=== PATIENT | female | born 1935 | race Caucasian/White ===

== ENCOUNTER 2020-07-23 14:33 | Inpatient (IN) | payer MEDICARE ==
[~2020-07-23] VITALS: Ht 160 cm; Wt 46.3 kg
--- NOTE | 2020-07-23 14:51 | NUR ---
MD@[email or web address], medical screening exam in progress
[2020-07-23] MEDS ORDERED: ASPI81TA31 PO (14:55)
[2020-07-23] MEDS ORDERED: MORP30TA59 PO (14:55)
[2020-07-23] MEDS ORDERED: CHOL12502 PO (14:55)
[2020-07-23] MEDS ORDERED: DESV50TA PO (14:55)
[2020-07-23] MEDS ORDERED: MIRT-121 PO (14:55)
[2020-07-23] MEDS ORDERED: MORP15TA PO (14:55)
[2020-07-23] MEDS ORDERED: AMLO-212 PO (14:55)
[2020-07-23] MEDS ORDERED: LORA-258 PO (14:55)
--- NOTE | 2020-07-23 15:00 | NUR ---
Called [facility] for bed assignment and they stated they do not have any female beds available. Nursing office notified and to call back with further information.
--- NOTE | 2020-07-23 15:18 | NUR ---
Patient is medically cleared by Dr Douglass for admission to geriatric mental health unit but no MHU beds available@this time.
--- NOTE | 2020-07-23 17:36 | NUR ---
Lights dimmed. inshore undersea warfare officer [email or web address]. 1:1 sitter observation maintained.
--- NOTE | 2020-07-23 18:39 | NUR ---
Patient's dinner@bedside.
--- NOTE | 2020-07-23 19:21 | NUR ---
Patient is eating dinner with good appetite. She is still waiting for an available MHU nurse & bed, endorsed to charge hand Adrian accordingly.
[2020-07-23] MEDS ORDERED: BLOOD SUGAR DIAGNOSTIC 1 EACH STRIP VI ONE (22:45)
[2020-07-23] MEDS ORDERED: MAG HYDROX/AL HYDROX/SIMETH 30 ML LIQUID UDC PO PRN (22:45)
[2020-07-23] MEDS ORDERED: MAGNESIUM HYDROXIDE 30 ML LIQUID UDC PO PRN (22:45)
[2020-07-23 22:49] VITALS: BP 147/78
--- NOTE | 2020-07-23 23:00 | NUR ---
GPS: Admitted to unit earlier an 84 yr.old female under the care and supervision of /DEBORAH Gross in stable condition. Pt.is on a 72 hour hold for DTS. Pt.expressed suicidal thoughts with intermittent intent occurring randomly with no clear warning or trigger and pt.admits she's not safe to go home,per hold. Upon interview,pt strongly denies having SI and clearly states that she's not suicidal nor have any plans to hurt herself. Pt.is AO x3 although forgetful at times. Anxious but cooperative during admission process. Body check done. Personal belongings list completed. Pt's advisement and pt's rights handbook given. Unit rules explained. Oriented to surroundings. Denies pain at this time. Fall precautions observed.
[2020-07-24 07:30] VITALS: BP 133/69
[2020-07-24] MEDS: LORAZEPAM 1 MG TABLET PO PRN ×3 (07:50→23:59)
[2020-07-24] MEDS: ACETAMINOPHEN 325 MG TABLET PO PRN ×2 (07:50→21:53)
--- NOTE | 2020-07-24 07:50 | NUR ---
UP AMBULATROEY WITH THE FRONT WHEEL WALKER INSISTING ON GETTING HER MORPHINE HER MEDICATIONS HAS NOT BEEN RECONCILED AND MD HAS BEEN NOTIFIED PATIENT GETTING ANXIOUS AND INSISTING ON SOME MEDS SO PATIENT WAS MEDICATED WITH ATIVAN AND TYLENOL AT THIS TIME MEANWHILE AWAITING FOR MD TO RECONCILE HOME MEDS.WILL CONTINUE TO OBSERVE AND PROVIDE COMFORT.
--- NOTE | 2020-07-24 09:31 | NUR ---
Firearms Report: Permit Review Assistant completed and submitted a DOJ firearms report for 5150 danger to self certifications. A copy of report has been placed in patient chart.
--- NOTE | 2020-07-24 11:03 | NUR ---
SUHAIL Initial Discharge Plan: Patient lives at home [address] [place] [address] with caregiver Stephanie Sandra ([phone]). Patient's daughter, Terese Dee ([phone]) is involved in her care. Patient would like to return home. Patient may require a SNF upon discharge. SUHAIL will continue to work with patient, family, and MD to ensure a safe and proper discharge plan.
--- NOTE | 2020-07-24 11:15 | NUR ---
CALLED AND NOTIFIED DR ABRAM MOSS RE PATIENT NEEDED HER HOME MEDICATIONS RECONCILED STATED OKAY
--- NOTE | 2020-07-24 11:16 | NUR ---
SW Caregiver Contact: SW spoke with patient's career transition specialist Stephanie Sandra ([phone]) who is the patient's 24/hr caregiver at home. Stephanie stated that she lives with the patient and helps take care of her.
--- NOTE | 2020-07-24 11:26 | NUR ---
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
--- NOTE | 2020-07-24 12:02 | NUR ---
SUHAIL Family Contact: SUHAIL spoke with patient's daughter, Terese ([phone]) and discussed treatment and discharge plan. SUHIAL educated Terese on the 5150 and 8070 hold criteria. Terese wanted to discuss patient's morphine use and needs with the doctor and nurse. SUHAIL transferred her call to charge nurse.
[2020-07-24] MEDS: MORPHINE SULFATE SR 15 MG TABLET.SA PO SCH ×2 (13:14→22:41)
[2020-07-24] MEDS ORDERED: MORP15TA PO (13:25)
--- NOTE | 2020-07-24 15:35 | NUR ---
DR FERNANDEZ HERE TO SEE AND EXAMINE PATIENT WITH NEW ORDERS AND NOTED.
--- NOTE | 2020-07-24 16:04 | NUR ---
CONSCENT FOR REMERON SIGNED BY THE PATIENT AND FAXED TO THE PHARMACY.
[2020-07-24 16:31] VITALS: BP 145/89
[2020-07-24 17:23] LABS: *BILIRUBIN,URIN NEGATIVE (NEGATIVE); *CLARITY,URINE CLEAR (CLEAR); *COLOR,URINE LIGHT YELLOW (YELLOW); *KETONES,URINE NEGATIVE (NEGATIVE); *UROBILINOGEN,URINE 0.2 E.U./dl (NORMAL); LEUKOCYTE ESTERASE ,URINE NEGATIVE (NEGATIVE); NITRITE, URINE NEGATIVE (NEGATIVE); UGLUCOSE NEGATIVE (NEGATIVE)
[2020-07-24 17:25] LABS: *BLOOD, URINE TRACE (NEGATIVE)
--- NOTE | 2020-07-24 18:00 | NUR ---
RESTING MORE ENGAGING SEEMS MORE ALERT WAS ABLE TO PRODUCE A URINE SPECIMEN ORDERED COMPLIANT AND COOPERATIVE DENIES SI OR HI WILL CONTINUE TO OBSERVE AND PROVIDE SAFE AND THERAPEUTIC ENVIRONMENT AT ALL TIMES.
[2020-07-24 20:11] VITALS: BP 142/71
[2020-07-24] MEDS: MIRTAZAPINE 15 MG TABLET PO SCH (20:42)
[2020-07-24] MEDS: TEMAZEPAM 7.5 MG CAPSULE PO PRN (21:10)
[2020-07-24 22:52] LABS: BACTERIA,URINE NONE SEEN /HPF (NONE SEEN); RBC,URINE 0-3 /HPF (0-3); SQUAMOUS EPITHELIAL CELL,UR FEW /HPF (NONE SEEN); WBC,URINE 0-3 /HPF (0-3)
[2020-07-25] MEDS: MORPHINE SULFATE SR 15 MG TABLET.SA PO SCH ×3 (01:05→20:48)
[2020-07-25 07:11] LABS: BASOPHILS # (AUTO) 0.1 K/uL (0.0-8.0); BASOPHILS % (AUTO) 0.7 % (0.0-2.0); EOSINOPHILS # (AUTO) 0.1 K/uL (0.0-0.7); EOSINOPHILS % (AUTO) 1.8 % (0.0-7.0); HEMATOCRIT 32.7 % (31.2-41.9); HEMOGLOBIN 11.5 g/dL (10.9-14.3); LYMPHOCYTES # (AUTO) 1.2 K/uL (20.0-40.0); LYMPHOCYTES % (AUTO) 17.3 % (20.5-51.5); MEAN CORPUSCULAR HEMOGLOBIN 29.9 uug (24.7-32.8); MEAN CORPUSCULAR HGB CONC 35 g/dL (32.3-35.6); MEAN CORPUSCULAR VOLUME 85.1 fL (75.5-95.3); MONOCYTES # (AUTO) 0.6 K/uL (2.0-10.0); MONOCYTES % (AUTO) 8.6 % (0.0-11.0); NEUTROPHILS % (AUTO) 71.6 % (38.5-71.5); PLATELET COUNT (AUTO) 271 K/uL (179-408); RED BLOOD CELL COUNT(AUTO) 3.84 MIL/uL (3.63-4.92)
[2020-07-25] MEDS: LORAZEPAM 1 MG TABLET PO PRN ×2 (07:17→13:58)
[2020-07-25 07:29] LABS: BILIRUBIN,TOTAL 0.3 mg/dL (0.2-1.0); CREATININE 0.9 mg/dL (0.6-1.3); MAGNESIUM 2.1 mg/dL (1.8-2.4); POTASSIUM 3.8 mmol/L (3.5-5.1); TOTAL PROTEIN, SERUM 7.3 g/dL (6.4-8.2)
[2020-07-25 07:30] VITALS: BP 146/84
[2020-07-25] MEDS: ASPIRIN 81 MG TAB.CHEW PO SCH (08:08)
[2020-07-25] MEDS: AMLODIPINE 5 MG TABLET PO SCH (08:09)
--- NOTE | 2020-07-25 09:26 | NUR ---
SUHAIL Family Contact: SUHAIL spoke with patient's daughter, Terese ([phone]) and and re-discussed treatment plan. SUHAIL Terese wanted education on medications and suicidal ideation. SUHAIL educated Terese on the severity of suicidal ideation with intermittent intent. Terese was more understanding with her mom's presenting situation and concerns. SUHAIL discussed discharge planning and stated that we must be certain the patient is stable before discharging her home.
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
[2020-07-25] MEDS ORDERED: LORAZEPAM 2 MG/1 ML VIAL IM ONE (14:45)
[2020-07-25] MEDS ORDERED: HALOPERIDOL LACTATE 5 MG/1 ML VIAL IM ONE (14:45)
--- NOTE | 2020-07-25 15:00 | NUR ---
Received a phone call from patient daughter, patient daughter states that the patients needed pain medication and was not seen by a medical doctor and psychiatrist, explained patients daughter that patient was seen by Psychiatrist and MD, and pain medication was already given and the patient been , long conversation and trying to explain about the patients behavior and how the family can help with the behavioral improvement of the patient was encourage, SW and Psychiatrist Made aware
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
[2020-07-25 16:18] VITALS: BP 111/55
[2020-07-25 20:20] VITALS: BP 143/69
[2020-07-25] MEDS: MIRTAZAPINE 15 MG TABLET PO SCH (20:48)
--- NOTE | 2020-07-26 05:59 | NUR ---
GPS: Remain calm and cooperative with meds and care. ambulate with fww. slept 8 hrs through the night. no behavior issue noted. assisted with adl's. bed alarm on resting in bed comfortably.
[2020-07-26 07:30] VITALS: BP 133/71
[2020-07-26] MEDS: ASPIRIN 81 MG TAB.CHEW PO SCH (08:03)
[2020-07-26] MEDS: MORPHINE SULFATE SR 15 MG TABLET.SA PO SCH ×2 (08:03→20:26)
[2020-07-26] MEDS: AMLODIPINE 5 MG TABLET PO SCH (08:04)
[2020-07-26] MEDS: ENSURE ENLIVE (VAN) 240 ML LIQUID PO SCH (08:04)
[2020-07-26] MEDS: PANTOPRAZOLE SODIUM 40 MG TABLET.DR PO SCH (08:54)
[2020-07-26] MEDS: LORAZEPAM 1 MG TABLET PO PRN ×2 (10:31→15:07)
--- NOTE | 2020-07-26 10:48 | NUR ---
called and follow up with [facility] regarding the pain management , patient still verbalizing pain even after oral pain medication given, new order was made and pain management consult was ordered, and Dr. reyes was notified, Dr. Reyes replied that he will make rounds today
[2020-07-26] MEDS: LIDOCAINE 5% PATCH TD SCH (12:25)
[2020-07-26] MEDS ORDERED: HYDROCODONE/APAP 5-325MG TABLET PO PRN (13:15)
[2020-07-26 15:34] VITALS: BP 115/59
[2020-07-26] MEDS: ACETAMINOPHEN 325 MG TABLET PO PRN (17:23)
--- NOTE | 2020-07-26 17:36 | NUR ---
Received patient awake , cooperative upon assessment, VS WNL, and no s/s of distress. Call light placed within easy reach. All needs met in a timely manner. Patient is constantly asking for pain on her lower back despite distraction and ice pack given. Notified Dr. Rob Gross and ordered for Lidocaine patch. Addendum: 07/26/20 at 1744 by GARETH BOND RN RN Received patient awake , cooperative upon assessment, VS WNL, and no s/s of distress. All needs met in a timely manner. Patient is constantly asking for pain on her lower back despite distraction and ice pack given. Notified Dr. Rob Gross and ordered for Lidocaine patch
[2020-07-26] MEDS: MIRTAZAPINE 15 MG TABLET PO SCH (20:26)
[2020-07-26 20:30] VITALS: BP 147/68
[2020-07-27] MEDS: TEMAZEPAM 7.5 MG CAPSULE PO PRN (00:09)
--- NOTE | 2020-07-27 05:34 | NUR ---
GPS: Remain calm and cooperative with meds and care. NO c/o pain or discomfort at this time. patient ambulate with fww. no behavior issue noted. assisted with adl's. bed alarm on resting in bed comfortably. continue plan of care.
--- NOTE | 2020-07-27 05:49 | NUR ---
slept 3.45 hrs through the night after sleeping meds given.
[2020-07-27] MEDS: PANTOPRAZOLE SODIUM 40 MG TABLET.DR PO SCH (06:07)
[2020-07-27] MEDS: ACETAMINOPHEN 325 MG TABLET PO PRN ×2 (06:13→15:55)
--- NOTE | 2020-07-27 06:16 | NUR ---
patient c/o right shoulder pain . tylenol 650 mg po prn given.
[2020-07-27 08:00] VITALS: BP 152/72
[2020-07-27] MEDS: ASPIRIN 81 MG TAB.CHEW PO SCH (08:39)
[2020-07-27] MEDS: MORPHINE SULFATE SR 15 MG TABLET.SA PO SCH ×2 (08:41→20:32)
[2020-07-27] MEDS: ENSURE ENLIVE (VAN) 240 ML LIQUID PO SCH (08:43)
[2020-07-27] MEDS: LIDOCAINE 5% PATCH TD SCH (08:44)
[2020-07-27] MEDS: AMLODIPINE 5 MG TABLET PO SCH (08:44)
--- NOTE | 2020-07-27 13:00 | NUR ---
RECEIVED CALL FROM Soraya CORDERO ([phone]) WHO IDENTIFIED HIMSELF THE PT'S AIR POLLUTION ENGINEER. STATES HE WANTS TO BE NOTIFIED OF THE PROBABLE CAUSE HEARING DATE AND TIME WHEN AVAILABLE BECAUSE HE WISHES TO ATTEND. WILL ENDORSE AND COMMUNICATE WITH CASCARA BARK CUTTER TO FOLLOW UP WITH INQUIRY.
--- NOTE | 2020-07-27 13:44 | NUR ---
GPS: Nursing Notes: Patient Found - Laying Down on The Floor: Patient was found laying down on the floor at 13:32, responding to her name, able to stand up with assistance to her bed, opening her eyes, but when questioning her what has happened, patient closed her eyes and shakes her head, denies any pain at this time, charge nurse informed, V/S: 166/78, 118, 18, 98.2, 0/10, Rob Gross NP physically examined her and put orders on the computer, continue to monitor for safety, continue with treatment plan.
--- NOTE | 2020-07-27 14:39 | NUR ---
GPS: Nursing Notes: Mood Disturbance: Depression: Patient is awake and responding to her name, stated, "I want to go to the bathroom." assisted with her BRP, urinating, following verbal commands, episodes of crying when asking her what happened, selectively mute at times, placed on morris chair near the nursing station, continue to monitor for safety, low energy level, unable to formulate a viable plan for self care, continue with treatment plan.
--- NOTE | 2020-07-27 14:50 | NUR ---
PT DAUGHTER JULIANA HAS BEEN NOTIFIED OF PT'S POSSIBLE FALL. STATES SHE WANTS TO TALK TO THE MEDICAL DOCTOR. INFORMED DR. RAMIREZ WITH HER NAME AND NUMBER. STATED HE WILL CALL HER ONCE RESULTS FOR SCANS ARE OBTAINED.
--- NOTE | 2020-07-27 15:11 | NUR ---
PT APPEARS TO BE MUCH MORE ALERT AT THIS TIME, FULLY RESPONSIVE AT BASELINE. ABLE TO VERBALIZE ALL NEEDS. STATES "I JUST WANT MY PAIN MEDICATIONS, I HAVE SPINAL STENOSIS." WILL CONTINUE TO MONITOR. CURRENTLY SITTING ON VU-CHAIR IN FRONT OF NURSES STATION FOR CONTINUAL MONITORING.
[2020-07-27 16:00] VITALS: BP 127/63
[2020-07-27 20:00] VITALS: BP 152/83
[2020-07-27] MEDS: MIRTAZAPINE 15 MG TABLET PO SCH (20:31)
[2020-07-27 21:40] VITALS: BP 148/76
[2020-07-27] MEDS ORDERED: hydrALAZINE HCL 10 MG TABLET PO PRN (22:30)
[2020-07-27] MEDS: IBUPROFEN 400 MG TABLET PO PRN (22:58)
--- NOTE | 2020-07-28 04:46 | NUR ---
Received patient awake in bed, fidgety and c/o pain. Blood pressure 152/83. This creative writer helped patient into morris chair and brought her to the nurses station to be watched closer for safety and to reassure patient when needed. Dr. Gross notified and an order received for PRN B/P medication . After the patient was medicated for pain and a ice pack applied, b/p came down to148/76. Patient was given a warm shower and her pain has been managed. Assembler Musical Equipment was able to engage in meaningful conversation and provide alternative pain relief techniques.Patient verbalized understanding and safety stratiges are in place.
[2020-07-28] MEDS: PANTOPRAZOLE SODIUM 40 MG TABLET.DR PO SCH (06:01)
[2020-07-28 07:30] VITALS: BP 145/72
[2020-07-28] MEDS: LIDOCAINE 5% PATCH TD SCH (08:49)
[2020-07-28] MEDS: ASPIRIN 81 MG TAB.CHEW PO SCH (08:49)
[2020-07-28] MEDS: AMLODIPINE 5 MG TABLET PO SCH (08:49)
[2020-07-28] MEDS: ENSURE ENLIVE (VAN) 240 ML LIQUID PO SCH (08:50)
[2020-07-28] MEDS: MORPHINE SULFATE SR 15 MG TABLET.SA PO SCH ×2 (08:50→20:04)
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
[2020-07-28] MEDS: IBUPROFEN 400 MG TABLET PO PRN (12:46)
[2020-07-28 14:49] LABS: BASOPHILS % (AUTO) 0.5 % (0.0-2.0); EOSINOPHILS % (AUTO) 0.4 % (0.0-7.0); HEMATOCRIT 36.2 % (31.2-41.9); HEMOGLOBIN 12.3 g/dL (10.9-14.3); LYMPHOCYTES # (AUTO) 0.9 K/uL (20.0-40.0); LYMPHOCYTES % (AUTO) 11.1 % (20.5-51.5); MEAN CORPUSCULAR HEMOGLOBIN 29.2 uug (24.7-32.8); MEAN CORPUSCULAR HGB CONC 34 g/dL (32.3-35.6); MONOCYTES # (AUTO) 0.5 K/uL (2.0-10.0); MONOCYTES % (AUTO) 6.4 % (0.0-11.0); NEUTROPHILS # (AUTO) 6.3 K/uL (1.8-8.9); NEUTROPHILS % (AUTO) 81.6 % (38.5-71.5); PLATELET COUNT (AUTO) 360 K/uL (179-408); RED BLOOD CELL COUNT(AUTO) 4.21 MIL/uL (3.63-4.92); WHITE BLOOD COUNT (AUTO) 7.8 K/uL (3.8-11.8)
[2020-07-28 14:53] LABS: CARBON DIOXIDE 28 mmol/L (21-32); CHLORIDE 97 mmol/L (98-107); CREATININE 0.8 mg/dL (0.6-1.3); GLUCOSE 130 mg/dL (74-106); POTASSIUM 4.5 mmol/L (3.5-5.1); UREA NITROGEN, BLOOD 30 mg/dL (7-18)
[2020-07-28 16:00] VITALS: BP 142/74
[2020-07-28 20:00] VITALS: BP 149/80
[2020-07-28] MEDS: MIRTAZAPINE 15 MG TABLET PO SCH (20:00)
[2020-07-28] MEDS: diphenhydrAMINE 25 MG CAP PO PRN (22:16)
[2020-07-29] MEDS: PANTOPRAZOLE SODIUM 40 MG TABLET.DR PO SCH (06:11)
[2020-07-29 07:30] VITALS: BP 152/79
[2020-07-29 08:00] VITALS: BP 152/79
[2020-07-29] MEDS: ASPIRIN 81 MG TAB.CHEW PO SCH (08:39)
[2020-07-29] MEDS: LIDOCAINE 5% PATCH TD SCH (08:39)
[2020-07-29] MEDS: AMLODIPINE 5 MG TABLET PO SCH (08:40)
[2020-07-29] MEDS: MORPHINE SULFATE SR 15 MG TABLET.SA PO SCH ×2 (08:40→20:25)
[2020-07-29] MEDS: ENSURE ENLIVE (VAN) 240 ML LIQUID PO SCH (08:41)
--- NOTE | 2020-07-29 09:30 | NUR ---
SUHAIL Family Contact: SW spoke with patient's daughter, Terese ([phone]) and informed of patient's PC hearing scheduled today at 10:30AM. Terese stated that she and the patient's thoracic medicine physician Malik ([phone]) requesting to be present in the court hearing. SUHAIL stated that once the patient gives consent, the advocate will call and speak to them.
--- NOTE | 2020-07-29 10:36 | NUR ---
PC Hearing Postponed: At the time of the PC hearing today at 10:30AM, this SW spoke with Chika Court Manager [employer] and the patient advocate, Melanie who spoke with the patient, daughter, Terese ([phone]), and the patient's private secretary Malik ([phone]). Melanie stated that the Undertaker Assistant is not available at the time of the scheduled hearing and the patient is requesting to postpone the hearing. Chika stated that we can possibly postpone the hearing to this afternoon. SW waiting for a call from Chika sometime today for the postponed hearing.
[2020-07-29] MEDS: METOPROLOL TARTRATE 25 MG TABLET PO SCH ×2 (10:45→20:24)
[2020-07-29 11:31] VITALS: BP 124/60
--- NOTE | 2020-07-29 13:20 | NUR ---
PC Hearing: Patient had 5250 probable cause hearing today at 1PM and the patient is released by the court against medical advice and can be discharged home today. Patient refused voluntary hospitalization.
--- NOTE | 2020-07-29 13:35 | NUR ---
Discharge Note: Patient is released from the court today and is being discharged home [address] [place] [address]. Patients daughter, Terese ([phone]) will be picking up the patient and taking her home today at 4PM. Patient is alert and oriented x4 and is aware and agreeable with discharge plan. Patient denies suicidal or homicidal ideation. Patient presents with euthymic mood and congruent affect. Patient will be following up with her primary physician Dr. Catracho Siegel [address], [place] [address] ([phone]). Patient is referred to outpatient psychiatrist services with Dr. Efrain Lu [address], [place] [address] ([phone]), pt.s daughter will call and make an appointment. Patients daughter arranged for a 01/11 caregiver to live in with the patient flight crew time clerk. Patient is provided with the following mental health resources, [facility] ([phone]), [facility] ([phone]), [facility] ([phone]), National Suicide Prevention Lifeline (128-851-5940). Patient's pharmacy is [facility] ([phone]). Addendum: 07/29/20 at 1616 by CDE ARNDT DISCHARGE CANCELLED DUE TO PATIENT DECIDING TO SIGN VOLUNTARY AND NOT LEAVE THE HOSPITAL TODAY.
--- NOTE | 2020-07-29 15:56 | NUR ---
spoke with eryn Paris discharge medication, nurse called in patient's own pharmacy for discharge medication.
[2020-07-29 16:00] VITALS: BP 127/73
--- NOTE | 2020-07-29 16:10 | NUR ---
Clinical Social Work Note Eb GARRETT alerted this business writer to daughter, Terese ([phone]) being en route and that she complained to Eb that medication would not be available today at their pharmacy. Patient then said " I don't want to leave today ". Patients stated " I feel weak, i don't want to go home today". This business writer then called Terese ([phone]) and familia then called her mother/our patient. Terese confirmed with this business writer that she will honor her mother's wishes and let her stay in the hospital. Patient signed voluntary admission papers. Daughter asked what she should do tomorrow and this business writer advised her to discuss discharge with Yaritza, assigned social and political studies professor.
[2020-07-29 20:00] VITALS: BP 138/73
[2020-07-29] MEDS: MIRTAZAPINE 15 MG TABLET PO SCH (20:25)
[2020-07-30] MEDS: diphenhydrAMINE 25 MG CAP PO PRN (01:13)
[2020-07-30] MEDS: PANTOPRAZOLE SODIUM 40 MG TABLET.DR PO SCH (06:12)
--- NOTE | 2020-07-30 06:42 | NUR ---
Patient slept 2.30 hrs.No episodes of behavioral issues through out the night. Ambulates with use of walker.Assisted patient to bathroom. Voided well.No expressing of SI/HI.
[2020-07-30 07:30] VITALS: BP 161/87
[2020-07-30] MEDS: MORPHINE SULFATE SR 15 MG TABLET.SA PO SCH ×2 (08:40→21:03)
[2020-07-30] MEDS: ASPIRIN 81 MG TAB.CHEW PO SCH (08:40)
[2020-07-30] MEDS: AMLODIPINE 5 MG TABLET PO SCH (08:40)
[2020-07-30] MEDS: METOPROLOL TARTRATE 25 MG TABLET PO SCH ×2 (08:44→21:04)
[2020-07-30] MEDS: ENSURE ENLIVE (VAN) 240 ML LIQUID PO SCH (08:49)
[2020-07-30] MEDS: LIDOCAINE 5% PATCH TD SCH (08:51)
[2020-07-30 16:13] VITALS: BP 108/59
[2020-07-30 20:32] VITALS: BP 102/56
[2020-07-30] MEDS: MIRTAZAPINE 15 MG TABLET PO SCH (21:03)
[2020-07-31] MEDS: PANTOPRAZOLE SODIUM 40 MG TABLET.DR PO SCH (06:01)
--- NOTE | 2020-07-31 06:18 | NUR ---
Pt slept 7 h. Pt in no acute distress. .Prescribed medication given and pt tolerated it well. Pt stable and vital signs within normal limit. Pt compliant with care. Safety and comfort provided. All needs are met. Will endorse to incoming nurse for continuity of care.
[2020-07-31 07:30] VITALS: BP 135/78
[2020-07-31 08:58] VITALS: BP 135/78
[2020-07-31] MEDS: METOPROLOL TARTRATE 25 MG TABLET PO SCH (08:58)
[2020-07-31] MEDS: AMLODIPINE 5 MG TABLET PO SCH (08:58)
[2020-07-31] MEDS: ASPIRIN 81 MG TAB.CHEW PO SCH (08:59)
[2020-07-31] MEDS: MORPHINE SULFATE SR 15 MG TABLET.SA PO SCH (09:00)
[2020-07-31] MEDS: LIDOCAINE 5% PATCH TD SCH (09:11)
[2020-07-31] MEDS: ENSURE ENLIVE (VAN) 240 ML LIQUID PO SCH (09:12)
[2020-07-31] MEDS: LORAZEPAM 1 MG TABLET PO PRN (10:14)
--- NOTE | 2020-07-31 10:40 | NUR ---
Gps/Farm Mechanic Apprentice- Patient anxious, fidgety , difficulty focusing , prompted to take her routine medications, claimed she ate well but noted, patient hardly ate breakfast, encouraged to drink her ensure. Per patient's daughter Marielle, patient is extremely off, today and anxious , ativan 1 mg 1 tab po was given , needed prompting to take her medications.
[2020-07-31] MEDS ORDERED: METO25TA6 PO (10:50)
--- NOTE | 2020-07-31 12:55 | NUR ---
SUHAIL NOTE: SUHAIL informed by charge nurse Garrick that patient expressed she would like to be discharged today. Patient is on a voluntary status. Dr. Walters is agreeable to discharge patient today.
--- NOTE | 2020-07-31 13:03 | NUR ---
Discharge Note: Patient is choosing to be discharged home [address] [place] [address]. Patients daughterTerese ([phone]) will be picking up the patient and taking her home today at 3-3:30PM. Patient is alert and oriented x4 and is aware and agreeable with discharge plan. Patient denies suicidal or homicidal ideation. Patient presents with euthymic mood and congruent affect. Patient will be following up with her primary physician Dr. Catracho Siegel [address], [place] [address] ([phone]). Patient is referred to outpatient psychiatrist services with Dr. Efrain Lu [address] [place] [address] ([phone]), pt.s daughter will call and make an appointment. Patients daughter arranged for a 01/11 caregiver to live in with the patient compensation associate. Patient is provided with the following mental health resources, [facility] ([phone]), [facility] ([phone]), [facility] ([phone]), National Suicide Prevention Lifeline ([phone]). Patient's pharmacy is [facility] ([phone]). Addendum: 07/31/20 at 1410 by CED ARNDT Clarification Note Patient asked to sign in voluntarily after her daughter and attorney lawyer won her probable cause hearing. Patient reported that she felt weak and was not ready to leave the hospital. Today Dr Walters is discharging this patient and feels that she is stable and ready for discharge.
--- NOTE | 2020-07-31 16:00 | NUR ---
Gps/Professor Of Political Science- Daughter Terese to provide transportation . All belongings/valuables given back to patient. Denies any discomfort, anxious about her discharged plan, but looking forward to it per patient. Reviewed her medications, safety emphasized, follow up with her Primary Medical Doctors , skin care, emphasized continued compliance with her medications as prescribed./as recommended . Denies S.I. no H.I. .Discharged to home via private car.
[2020-07-31] MEDS ORDERED: LORAZEPAM 1 MG TABLET PO SCH (17:00)
== END 2020-07-31 16:05 | disposition home or self-care (01) | DRG 881 ==
LOC: ER 14:33 → GPS 21:35
PROVIDERS: ADMIT Psychiatry & Neurology Psychiatry
DX: F32.9 Major depressive disorder, single episode, unspecified (principal); R45.851 Suicidal ideations; G93.40 Encephalopathy, unspecified; Z86.73 Personal history of transient ischemic attack (TIA), and cerebral infarction without residual deficits; R41.82 Altered mental status, unspecified; T40.2X5A Adverse effect of other opioids, initial encounter; Y92.89 Other specified places as the place of occurrence of the external cause; R55 Syncope and collapse; I10 Essential (primary) hypertension; D64.9 Anemia, unspecified; E78.5 Hyperlipidemia, unspecified; F03.90 Unspecified dementia, unspecified severity, without behavioral disturbance, psychotic disturbance, mood disturbance, and anxiety; G89.4 Chronic pain syndrome; K21.9 Gastro-esophageal reflux disease without esophagitis; Z79.891 Long term (current) use of opiate analgesic; M48.00 Spinal stenosis, site unspecified; Z88.0 Allergy status to penicillin
CPT/HCPCS: 36415; 70450; 72125; 83735; 84100; 84443; 85025; 87086; A4663; J1630; J2060; Q0163